=== PATIENT | male | born 1975 | race Caucasian/White ===

== ENCOUNTER 2023-12-25 21:15 | Inpatient (IN) | payer OTHER ==
[2023-12-25 21:42] VITALS: BMI 31.8
[2023-12-25] MEDS ORDERED: MAG HYDROX/AL HYDROX/SIMETH 30 ML UNIT-DOSE CUP PO PRN (22:42)
[2023-12-25] MEDS ORDERED: IBUPROFEN 600 MG TABLET (FP) PO PRN (22:42)
[2023-12-25] MEDS ORDERED: MAGNESIUM HYDROX 2400MG/30ML ORAL SUSPENSION 30 ML CUP PO PRN (22:42)
[2023-12-25] MEDS ORDERED: BENZOCAINE/MENTHOL (CHLORASEPTIC ) LOZENGE MM PRN (22:42)
[2023-12-25] MEDS ORDERED: IBUPROFEN 400 MG TABLET (FP) PO PRN (22:42)
[2023-12-25] MEDS ORDERED: P-EPHED 60MG/TRIPROLIDI 2.5MG TABLET PO PRN (22:42)
[2023-12-25] MEDS ORDERED: guaiFENesin 600 MG TABLET.ER (FP) PO PRN (22:42)
[2023-12-25] MEDS ORDERED: POLYETHYLENE GLYCOL (HEALTHYLAX) 3350 17 GM PACKET PO PRN (22:42)
[2023-12-25] MEDS ORDERED: ACETAMINOPHEN 325 MG TABLET (FP) PO PRN (22:42)
[2023-12-25] MEDS ORDERED: BENZONATATE 200 MG CAPSULE PO PRN (22:42)
[2023-12-25] MEDS ORDERED: DICYCLOMINE HCL 10 MG CAPSULE PO PRN (22:42)
[2023-12-25] MEDS ORDERED: ONDANSETRON *ODT* 4 MG TABLET SL PRN (22:42)
[2023-12-25] MEDS ORDERED: LOPERAMIDE HCL 2 MG CAPSULE PO PRN (22:42)
[2023-12-25] MEDS ORDERED: METOPROLOL TARTRATE 25 MG TABLET (FP) ONE (23:34)
[2023-12-25] MEDS: METOPROLOL TARTRATE 25 MG TABLET (FP) PO ONE (23:37)
[2023-12-26] MEDS: hydrOXYzine PAMOATE 25 MG CAPSULE (FP) PO PRN (00:20)
[2023-12-26] MEDS: METHOCARBAMOL 500 MG TABLET PO PRN (00:55)
[2023-12-26] MEDS: PRENATAL VITAMINS W/ FOLIC ACID TABLET (FP) PO SCH (10:16)
[2023-12-26] MEDS ORDERED: diazePAM 5 MG TABLET PO PRN (10:44)
[2023-12-26 10:52] LABS: HEMATOCRIT 41.1 % (35.4-49); HEMOGLOBIN 13.9 GM/dL (11.7-16.9); MCH 30.5 pg (25.7-33.7); MCHC 33.7 g/dl (32.0-35.9); MEAN CELL VOLUME 90.5 fl (80-96); PLATELET COUNT 162 10^3/uL (134-434); RBC 4.54 M/mm3 (4.00-5.60); RDW 12.9 % (11.9-15.9); WHITE BLOOD COUNT 7.5 K/mm3 (4.0-10.0)
[2023-12-26] MEDS: diazePAM 5 MG TABLET PO SCH (11:03)
[2023-12-26 11:43] LABS: CHLORIDE 104 mmol/L (98-107); POTASSIUM 3.7 mmol/L (3.5-5.1); SODIUM 139 mmol/L (136-145)
[2023-12-26 11:49] LABS: ALBUMIN 2.9 g/dl (3.4-5.0); ANION GAP 9 mmol/L (4-13); BLOOD UREA NITROGEN 14.3 mg/dL (7-18); CO2 26 mmol/L (21-32); GLUCOSE,RANDOM 96 mg/dL (74-106)
[2023-12-26 11:52] LABS: CREATININE 0.9 mg/dL (0.55-1.3); SGOT/AST 26 U/L (15-37); SGPT/ALT 58 U/L (13-61)
[2023-12-26 11:54] LABS: ALK PHOS 72 U/L (45-117); BILIRUBIN,TOTAL 0.9 mg/dL (0.2-1)
[2023-12-26] MEDS: MELATONIN 5 MG TABLETS PO SCH (22:20)
[2023-12-26] MEDS: THIAMINE HCL 100 MG TABLET (FP) PO SCH (22:20)
[2023-12-27] MEDS: PANTOPRAZOLE 20 MG TABLET PO SCH (15:18)
[2023-12-27] MEDS: cloNIDine HCL 0.1 MG TABLET PO PRN (15:18)
[2023-12-28] MEDS: BISMUTH SUBSALICYLATE 524 MG/30 ML PO PRN (02:10)
[2023-12-28] MEDS: diazePAM 5 MG TABLET PO SCH (05:25)
[2023-12-28] MEDS: CALCIUM CARBONATE 650 MG TABLET PO SCH (15:14)
[2023-12-29] MEDS: diazePAM 5 MG TABLET PO SCH (05:13)
[2023-12-29 05:46] VITALS: BP 151/77; PULSE 74; RESP 18; TEMP 98.1
[2023-12-30] MEDS ORDERED: diazePAM 5 MG TABLET PO ONE (06:00)
== END 2023-12-29 09:30 | disposition home or self-care (01) | DRG 775 ==
LOC: YASAS 21:15 → Y3N 23:16
PROVIDERS: ADMIT Allergy & Immunology; ATTEND Surgery
PROC: HZ2ZZZZ Detoxification Services for Substance Abuse Treatment (ICD-10-PCS; principal; 2023-12-25)
DX: F10.230 Alcohol dependence with withdrawal, uncomplicated (principal); F10.220 Alcohol dependence with intoxication, uncomplicated; E83.51 Hypocalcemia; K29.70 Gastritis, unspecified, without bleeding
CPT/HCPCS: 36415; 80053; 80307; 85027; 86780; 87635; 93005; 93010